=== PATIENT | female | born 1950 | race Caucasian/White ===

== ENCOUNTER → 2019-05-14 14:47 | Outpatient (BNVA) | payer MEDICARE, SELFPAY | PROVIDERS: Family Provider Registered Nurse; PCP Family Medicine; Visit Provider Urology | DX: N39.46 Mixed incontinence (principal) | CPT/HCPCS: 81001 ==

== ENCOUNTER 2020-05-27 15:43 | Inpatient (IN) | payer MEDICARE, SELFPAY ==
[2020-05-27] VITALS (12 sets, daily range): BP systolic 103–150; BP diastolic 45–88; PULSE 75–93; RESP 18–26; TEMP 36.2; O2SAT 87–97; BMI 45.3
--- NOTE | 2020-05-27 16:09 | ED_ITS ---
Documented by User: GENEVIEVE Gregg 05/27/20 16:27 HPI - Altered Mental Status General: Chief Complaint: Shortness of Breath/Dyspnea Stated Complaint: had covid like symptoms for 2 weeks Time Seen by Provider: 05/27/20 15:47 Source: patient and family (son) Mode of arrival: wheelchair Limitations: altered mental status History of Present Illness: HPI narrative: Patient is a 70-year-old female with a history of HTN, DM, HLD, and morbid obesity here along with her son for complaints of altered mental status. Son states he recently calls and checks on his mother and states over the past few weeks she has progressively sounded more and more incoherent . He states when he checked on her today she seemed even more so confused so decided to get her medical evaluation. Patient during my assessment seems alert and oriented. She can tell me her name, , date, and president although some of these answers take more time than expected. When asked if she has any physical complaints currently she tells me she has some neck pain although states this is chronic and not any worse than her baseline. She tells me she has had a cough and shortness of breath ever only admits to these with prompting. She is not having chest pain. She denies abdominal pain, vomiting, diarrhea. Denies urinary symptoms. Denies headache, lightheadedness, dizziness, visual changes. She has not noticed any numbness, tingling, loss of sensation to her extremities. Son has not noticed any facial drooping or slurred speech. MD complaint: altered mental status, confusion and decreased responsiveness Onset (ago): week(s) Consistency of symptoms: Getting Worse Associated symptoms: Reports no associated symptoms Review of Systems Const: Reports: fatigue; Denies: fever(s), chills, body aches or night sweats Eyes: Denies: change in vision ENMT: Denies: odynophagia, nasal discharge or nasal congestion Card: Denies: chest pain, palpitations, irregular heart rhythm, edema, lightheadedness, syncope or pre-syncope Resp: Reports: dyspnea and non-productive cough; Denies: wheezing or hemoptysis GI: Denies: abdominal pain, nausea, vomiting or diarrhea : Denies: flank pain or dysuria Musc: Reports: neck pain (chronic); Denies: back pain or joint pain Skin/Breast: Denies: rash Neuro: Reports: confusion and difficulty communicating thoughts; Denies: headache(s), numbness in extremities, weakness in extremities, sensory changes, dizziness or Slurred speech present [facility] ED PFSH: Medical History (Updated 05/27/20 @ 22:20 by BRITTNEY Noriega) Diabetes HTN (hypertension) Hyperlipidemia Mixed stress and urge urinary incontinence Obesity JIMBO (obstructive sleep apnea) Surgical History H/O section H/O knee surgery S/P adenoidectomy S/P appendectomy S/P cholecystectomy S/P hysterectomy S/P tonsillectomy Status post tubal ligation Family History Father CAD (coronary artery disease) Hypertension Myocardial infarction Mother CAD (coronary artery disease) Hypertension Myocardial infarction Social History Smoking and tobacco status: never smoked Alcohol intake: never Marital status: Current occupational status: retired History of recent travel: No Physical Exam Const: COMMON NORMALS: no acute distress, patient oriented x3, no limitations and alert ORIENTATION/CONSCIOUSNESS: Yes awake, Yes oriented to person, Yes oriented to place and Yes oriented to time OTHER: pt answers all questions appropriately but often pauses and answers take longer than expected to answer HENMT: COMMON NORMALS: normocephalic and atraumatic HEAD & SCALP: normocephalic and atraumatic Resp: COMMON NORMALS: normal respiratory effort and clear to auscultation bilaterally AUSCULTATION: clear to auscultation bilaterally Cardio: COMMON NORMALS: regular rate and regular rhythm RATE: regular rate RHYTHM: regular rhythm GI: COMMON NORMALS: Soft to palpation and non-tender PALPATION: Yes Soft to palpation OTHER: morbid obesity; exam limited due to severe body habitus/extremely large pannus : COMMON NORMALS: Yes no CVA tenderness BLADDER/KIDNEY EXAM: Yes no CVA tenderness Back/Pelvis: COMMON NORMALS: no CVA tenderness Extremity: COMMON NORMALS: capillary refill normal, no joint enlargement, no calf tenderness and no pedal edema Neuro: NAMITA COMA SCALE: document GCS findings [place] coma scale eye opening: Spontaneous Namita coma scale verbal response: Orientated [place] coma scale motor response: Obey commands [place] coma scale total score: 15 COMMON NORMALS: patient oriented x3, moves all extremities, no focal motor deficits and no sensory deficits noted SENSORIUM/ORIENTATION: Yes alert, Yes oriented to person, Yes oriented to place and Yes oriented to time SPEECH: speech normal GAIT: Yes Unable to assess gait Course Vital Signs: Vital signs: Vital Signs Temperature 97.2 F L 05/27/20 15:46 Pulse Rate 90 05/27/20 22:00 Respiratory Rate 19 H 05/27/20 22:00 Blood Pressure 105/84 05/27/20 22:00 Pulse Oximetry 93 05/27/20 22:00 MDM - Altered Mental Status Lab Data: Labs: Lab Results 05/27/20 05/27/20 05/27/20 Range/Units 16:29 16:29 16:29 WBC (4.0-10.0) 10^3/ uL RBC (4.1-5.3) 10^6/u L Hgb (11.5-15.3) g/dL Hct (37.0-47.0) % MCV (81-99) fL MCH (28.0-34.0) pg MCHC (30.0-36.0) g/dL RDW (12.1-15.1) % Plt Count (130-400) 10^3/c mm MPV (7.4-10.4) fL Neut % (Auto) % Lymph % (Auto) % Bulloch % (Auto) % Eos % (Auto) % Baso % (Auto) % Neut # (Auto) (1.8-7.7) 10^3/u L Lymph # (Auto) (0.8-4.8) 10^3/u L Bulloch # (Auto) (0.2-0.9) 10^3/u L Eos # (Auto) (0.0-0.8) 10^3/u L Baso # (Auto) (0.0-0.1) 10^3/u L Nucleated RBC % (a uto) % Nucleated RBCs # /100WBC Specimen Type Sample Site ABG pH (7.35-7.45) ABG pCO2 (35-45) mmHg ABG pO2 (80.0-100.0) mmH g ABG HCO3 (22-26) mmol/L ABG O2 Saturation ABG Base Excess (-2.0-2.0) mmol/ L Salomon Test A-a O2 Gradient (5-10) mmHg Hematocrit (37-47) % Hgb O2 Saturation (95-100) % Carboxyhemoglobin (0.4-20.1) %THgb Methemoglobin (0.4-1.5) % Total Hemoglobin (12-16) g/dL Ionized Calcium (1.1-1.4) mmol/L O2 Delivery Device FiO2 % Director Learning ID Sodium (136-145) mmol/L Potassium (3.5-5.1) mmol/L Chloride (98-107) mmol/L Carbon Dioxide (22-29) mmol/L Anion Gap (5-19) BUN (8-23) mg/dL Creatinine (0.5-0.9) mg/dL GFR Calculation (90-130) mL/min Glucose (65-115) mg/dL Calculated Osmolal ity (285-295) mOsm/k g Lactic Acid (0.5-2.2) mmol/L Calcium (8.5-10.5) mg/dL Total Bilirubin (0.15-1.2) mg/dL AST (0-32) U/L ALT (0-33) U/L Alkaline Phosphata se (35-105) IU/L Troponin T Baselin e (0-10) ng/L Troponin T 120 Min rosebud (0-10) ng/L Delta Troponin T (0-10) ABS# NT-Pro-B Natriuret Pep (0-125) pg/mL Total Protein (6.6-8.7) g/dL Albumin (3.5-5.2) g/dL Globulin (1.3-4.6) g/dL Lipase (13-60) U/L Urine Color Dark yellow (Yellow) Urine Appearance Sl hazy (CLEAR) Urine pH 5 (5-7) Ur Specific Gravit y 1.020 (1.005-1.030) Urine Protein 1+ H (Negative) Urine Glucose (UA) Norm (Normal) Urine Ketones 1+ H (Negative) Urine Blood Neg (Negative) Urine Nitrate Negative (Negative) Urine Bilirubin 1+ H (Negative) Urine Urobilinogen 1 H (Negative) mg/dL Ur Leukocyte Catrina ase Negative (Negative) Urine RBC None (0-2) /hpf Urine WBC 5-10 H (0-5) /hpf Ur Squamous Epith Cells 10-15 H (0-5) /hpf Amorphous Sediment Not Reportable Urine Bacteria 4+ H (NONE) /hpf Urine Opiates Scre en Negative (Negative) ng/mL Ur Barbiturates Sc reen Negative (Negative) ng/mL Ur Phencyclidine S crn Negative (Negative) ng/mL Ur Amphetamines Sc reen Negative (Negative) ng/mL U Benzodiazepines Scrn Negative (Negative) ng/mL Urine Cocaine Scre en Negative (Negative) ng/mL U Marijuana (THC) Screen Negative (Negative) ng/mL Serum Ketones (Negative) SARS-CoV-2 Ag (Rap id) Negative (Negative) 05/27/20 05/27/20 05/27/20 Range/Units 19:15 19:15 19:15 WBC 4.5 (4.0-10.0) 10^3/ uL RBC 4.25 (4.1-5.3) 10^6/u L Hgb 12.1 (11.5-15.3) g/dL Hct 36.9 L (37.0-47.0) % MCV 86.8 (81-99) fL MCH 28.5 (28.0-34.0) pg MCHC 32.8 (30.0-36.0) g/dL RDW 13.3 (12.1-15.1) % Plt Count 204 (130-400) 10^3/c mm MPV 9.4 (7.4-10.4) fL Neut % (Auto) 72.2 % Lymph % (Auto) 18.6 % Bulloch % (Auto) 8.6 % Eos % (Auto) 0.0 % Baso % (Auto) 0.2 % Neut # (Auto) 3.26 (1.8-7.7) 10^3/u L Lymph # (Auto) 0.8 (0.8-4.8) 10^3/u L Bulloch # (Auto) 0.4 (0.2-0.9) 10^3/u L Eos # (Auto) 0.0 (0.0-0.8) 10^3/u L Baso # (Auto) 0.0 (0.0-0.1) 10^3/u L Nucleated RBC % (a uto) 0 % Nucleated RBCs # 0.0 /100WBC Specimen Type Sample Site ABG pH (7.35-7.45) ABG pCO2 (35-45) mmHg ABG pO2 (80.0-100.0) mmH g ABG HCO3 (22-26) mmol/L ABG O2 Saturation ABG Base Excess (-2.0-2.0) mmol/ L Salomon Test A-a O2 Gradient (5-10) mmHg Hematocrit (37-47) % Hgb O2 Saturation (95-100) % Carboxyhemoglobin (0.4-20.1) %THgb Methemoglobin (0.4-1.5) % Total Hemoglobin (12-16) g/dL Ionized Calcium (1.1-1.4) mmol/L O2 Delivery Device FiO2 % Director Learning ID Sodium 136 (136-145) mmol/L Potassium 3.3 L (3.5-5.1) mmol/L Chloride 105 (98-107) mmol/L Carbon Dioxide 19 L (22-29) mmol/L Anion Gap 15.3 (5-19) BUN 15 (8-23) mg/dL Creatinine 0.6 (0.5-0.9) mg/dL GFR Calculation 98.8 (90-130) mL/min Glucose 102 (65-115) mg/dL Calculated Osmolal ity 283 L (285-295) mOsm/k g Lactic Acid 0.6 (0.5-2.2) mmol/L Calcium 8.0 L (8.5-10.5) mg/dL Total Bilirubin 0.3 (0.15-1.2) mg/dL AST 20 (0-32) U/L ALT 17 (0-33) U/L Alkaline Phosphata se 62 (35-105) IU/L Troponin T Baselin e (0-10) ng/L Troponin T 120 Min rosebud (0-10) ng/L Delta Troponin T (0-10) ABS# NT-Pro-B Natriuret Pep 96 (0-125) pg/mL Total Protein 6.0 L (6.6-8.7) g/dL Albumin 3.1 L (3.5-5.2) g/dL Globulin 2.9 (1.3-4.6) g/dL Lipase (13-60) U/L Urine Color (Yellow) Urine Appearance (CLEAR) Urine pH (5-7) Ur Specific Gravit y (1.005-1.030) Urine Protein (Negative) Urine Glucose (UA) (Normal) Urine Ketones (Negative) Urine Blood (Negative) Urine Nitrate (Negative) Urine Bilirubin (Negative) Urine Urobilinogen (Negative) mg/dL Ur Leukocyte Catrina ase (Negative) Urine RBC (0-2) /hpf Urine WBC (0-5) /hpf Ur Squamous Epith Cells (0-5) /hpf Amorphous Sediment Urine Bacteria (NONE) /hpf Urine Opiates Scre en (Negative) ng/mL Ur Barbiturates Sc reen (Negative) ng/mL Ur Phencyclidine S crn (Negative) ng/mL Ur Amphetamines Sc reen (Negative) ng/mL U Benzodiazepines Scrn (Negative) ng/mL Urine Cocaine Scre en (Negative) ng/mL U Marijuana (THC) Screen (Negative) ng/mL Serum Ketones (Negative) SARS-CoV-2 Ag (Rap id) (Negative) 05/27/20 05/27/20 05/27/20 Range/Units 19:15 19:15 19:15 WBC (4.0-10.0) 10^3/ uL RBC (4.1-5.3) 10^6/u L Hgb (11.5-15.3) g/dL Hct (37.0-47.0) % MCV (81-99) fL MCH (28.0-34.0) pg MCHC (30.0-36.0) g/dL RDW (12.1-15.1) % Plt Count (130-400) 10^3/c mm MPV (7.4-10.4) fL Neut % (Auto) % Lymph % (Auto) % Bulloch % (Auto) % Eos % (Auto) % Baso % (Auto) % Neut # (Auto) (1.8-7.7) 10^3/u L Lymph # (Auto) (0.8-4.8) 10^3/u L Bulloch # (Auto) (0.2-0.9) 10^3/u L Eos # (Auto) (0.0-0.8) 10^3/u L Baso # (Auto) (0.0-0.1) 10^3/u L Nucleated RBC % (a uto) % Nucleated RBCs # /100WBC Specimen Type Sample Site ABG pH (7.35-7.45) ABG pCO2 (35-45) mmHg ABG pO2 (80.0-100.0) mmH g ABG HCO3 (22-26) mmol/L ABG O2 Saturation ABG Base Excess (-2.0-2.0) mmol/ L Salomon Test A-a O2 Gradient (5-10) mmHg Hematocrit (37-47) % Hgb O2 Saturation (95-100) % Carboxyhemoglobin (0.4-20.1) %THgb Methemoglobin (0.4-1.5) % Total Hemoglobin (12-16) g/dL Ionized Calcium (1.1-1.4) mmol/L O2 Delivery Device FiO2 % Director Learning ID Sodium (136-145) mmol/L Potassium (3.5-5.1) mmol/L Chloride (98-107) mmol/L Carbon Dioxide (22-29) mmol/L Anion Gap (5-19) BUN (8-23) mg/dL Creatinine (0.5-0.9) mg/dL GFR Calculation (90-130) mL/min Glucose (65-115) mg/dL Calculated Osmolal ity (285-295) mOsm/k g Lactic Acid (0.5-2.2) mmol/L Calcium (8.5-10.5) mg/dL Total Bilirubin (0.15-1.2) mg/dL AST (0-32) U/L ALT (0-33) U/L Alkaline Phosphata se (35-105) IU/L Troponin T Baselin e 21 H (0-10) ng/L Troponin T 120 Min rosebud (0-10) ng/L Delta Troponin T (0-10) ABS# NT-Pro-B Natriuret Pep (0-125) pg/mL Total Protein (6.6-8.7) g/dL Albumin (3.5-5.2) g/dL Globulin (1.3-4.6) g/dL Lipase 19 (13-60) U/L Urine Color (Yellow) Urine Appearance (CLEAR) Urine pH (5-7) Ur Specific Gravit y (1.005-1.030) Urine Protein (Negative) Urine Glucose (UA) (Normal) Urine Ketones (Negative) Urine Blood (Negative) Urine Nitrate (Negative) Urine Bilirubin (Negative) Urine Urobilinogen (Negative) mg/dL Ur Leukocyte Catrina ase (Negative) Urine RBC (0-2) /hpf Urine WBC (0-5) /hpf Ur Squamous Epith Cells (0-5) /hpf Amorphous Sediment Urine Bacteria (NONE) /hpf Urine Opiates Scre en (Negative) ng/mL Ur Barbiturates Sc reen (Negative) ng/mL Ur Phencyclidine S crn (Negative) ng/mL Ur Amphetamines Sc reen (Negative) ng/mL U Benzodiazepines Scrn (Negative) ng/mL Urine Cocaine Scre en (Negative) ng/mL U Marijuana (THC) Screen (Negative) ng/mL Serum Ketones Positive H (Negative) SARS-CoV-2 Ag (Rap id) (Negative) 05/27/20 05/27/20 Range/Units 20:29 21:14 WBC (4.0-10.0) 10^3/ uL RBC (4.1-5.3) 10^6/u L Hgb (11.5-15.3) g/dL Hct (37.0-47.0) % MCV (81-99) fL MCH (28.0-34.0) pg MCHC (30.0-36.0) g/dL RDW (12.1-15.1) % Plt Count (130-400) 10^3/c mm MPV (7.4-10.4) fL Neut % (Auto) % Lymph % (Auto) % Bulloch % (Auto) % Eos % (Auto) % Baso % (Auto) % Neut # (Auto) (1.8-7.7) 10^3/u L Lymph # (Auto) (0.8-4.8) 10^3/u L Bulloch # (Auto) (0.2-0.9) 10^3/u L Eos # (Auto) (0.0-0.8) 10^3/u L Baso # (Auto) (0.0-0.1) 10^3/u L Nucleated RBC % (a uto) % Nucleated RBCs # /100WBC Specimen Type Arterial Sample Site Radial, left ABG pH 7.41 (7.35-7.45) ABG pCO2 33.9 L (35-45) mmHg ABG pO2 56.2 L (80.0-100.0) mmH g ABG HCO3 21.6 L (22-26) mmol/L ABG O2 Saturation 90.6 ABG Base Excess -2.4 L (-2.0-2.0) mmol/ L Salomon Test Pos A-a O2 Gradient 6.4 (5-10) mmHg Hematocrit 38.7 (37-47) % Hgb O2 Saturation 89.1 L (95-100) % Carboxyhemoglobin 0.8 (0.4-20.1) %THgb Methemoglobin 0.9 (0.4-1.5) % Total Hemoglobin 12.6 (12-16) g/dL Ionized Calcium 1.1 (1.1-1.4) mmol/L O2 Delivery Device Room air FiO2 21.0 % Director Learning ID Harkr Sodium 137.0 (136-145) mmol/L Potassium 3.1 L (3.5-5.1) mmol/L Chloride (98-107) mmol/L Carbon Dioxide (22-29) mmol/L Anion Gap (5-19) BUN (8-23) mg/dL Creatinine (0.5-0.9) mg/dL GFR Calculation (90-130) mL/min Glucose 94.0 (65-115) mg/dL Calculated Osmolal ity (285-295) mOsm/k g Lactic Acid (0.5-2.2) mmol/L Calcium (8.5-10.5) mg/dL Total Bilirubin (0.15-1.2) mg/dL AST (0-32) U/L ALT (0-33) U/L Alkaline Phosphata se (35-105) IU/L Troponin T Baselin e (0-10) ng/L Troponin T 120 Min rosebud 18.91 H (0-10) ng/L Delta Troponin T -2.09 L (0-10) ABS# NT-Pro-B Natriuret Pep (0-125) pg/mL Total Protein (6.6-8.7) g/dL Albumin (3.5-5.2) g/dL Globulin (1.3-4.6) g/dL Lipase (13-60) U/L Urine Color (Yellow) Urine Appearance (CLEAR) Urine pH (5-7) Ur Specific Gravit y (1.005-1.030) Urine Protein (Negative) Urine Glucose (UA) (Normal) Urine Ketones (Negative) Urine Blood (Negative) Urine Nitrate (Negative) Urine Bilirubin (Negative) Urine Urobilinogen (Negative) mg/dL Ur Leukocyte Catrina ase (Negative) Urine RBC (0-2) /hpf Urine WBC (0-5) /hpf Ur Squamous Epith Cells (0-5) /hpf Amorphous Sediment Urine Bacteria (NONE) /hpf Urine Opiates Scre en (Negative) ng/mL Ur Barbiturates Sc reen (Negative) ng/mL Ur Phencyclidine S crn (Negative) ng/mL Ur Amphetamines Sc reen (Negative) ng/mL U Benzodiazepines Scrn (Negative) ng/mL Urine Cocaine Scre en (Negative) ng/mL U Marijuana (THC) Screen (Negative) ng/mL Serum Ketones (Negative) SARS-CoV-2 Ag (Rap id) (Negative) Discharge Plan Discharge Patient Disposition: Admitted As Inpatient Clinical Impression: Weakness, Suspected 2019 novel coronavirus infection Acute exacerbation of CHF (congestive heart failure) Qualifiers: Heart failure type: unspecified Qualified Code(s): I50.9 - Heart failure, unsp ecified Condition: Stable Sign Out Sign Out Data: Patient Sign Out occurred on 05/27/20 at 17:14. Patient's care was discussed, and care was transferred from to BRITTNEY Noriega. Coding Level of Care Code ED Mine Promotor for Chg Fwd Exam Comprehensive Documented by User: BRITTNEY Noriega 05/27/20 22:25 HPI - Altered Mental Status General: Chief Complaint: Shortness of Breath/Dyspnea Stated Complaint: had covid like symptoms for 2 weeks Time Seen by Provider: 05/27/20 15:47 PFSH ED PFSH: Medical History (Updated 05/27/20 @ 22:20 by BRITTNEY Noriega) Diabetes HTN (hypertension) Hyperlipidemia Mixed stress and urge urinary incontinence Obesity JIMBO (obstructive sleep apnea) Surgical History H/O section H/O knee surgery S/P adenoidectomy S/P appendectomy S/P cholecystectomy S/P hysterectomy S/P tonsillectomy Status post tubal ligation Family History Father CAD (coronary artery disease) Hypertension Myocardial infarction Mother CAD (coronary artery disease) Hypertension Myocardial infarction Social History Smoking and tobacco status: never smoked Alcohol intake: never Marital status: Current occupational status: retired History of recent travel: No Course Consultations: Consultation #1: Dr Zaldivar, hospitalist, discussed history of present illness, clinical findings and serology/radiology findings. Agrees to admit to inpatient services, acute exacerbation of CHF, weakness and suspected COVID-19 infection. Advised to administer 20 mg of Lasix. Time: 22:15 Vital Signs: Vital signs: Vital Signs Temperature 97.2 F L 05/27/20 15:46 Pulse Rate 90 05/27/20 22:00 Respiratory Rate 19 H 05/27/20 22:00 Blood Pressure 105/84 05/27/20 22:00 Pulse Oximetry 93 05/27/20 22:00 MDM - Altered Mental Status MDM Narrative: Medical decision making narrative: 70-year-old female patient presents to the emergency department at the request of her primary care physician, 6-week onset of shortness of breath, increased weakness and altered mental status according to family; she reports increased shortness of breath x2 weeks with cough, she reports 2-day onset of chest pain that is located in the center of her chest with nausea. She reports shortness of breath is worse with activity/movement, states has not completed ADLs in her home as she has been too weak, she reports family has brought her food as she is too weak to cook. She does not have cardiac history, she is diabetic with hypertension, hyperlipidemia, diabetes morbid obesity and JIMBO. She does have family history, her father of inferior wall [place]. Cardiac stress test 2018, previously evaluated by cardiology November 2019. Weight loss encouraged along with lifestyle changes. Initiation of Trulicity approximately 5 weeks ago, serum ketones found to be positive, PaO2 on her ABG was 56.2, bicarb 21.6, CO2 33.9; chest x-ray revealed prominent interstitial markings questioning volume overload versus viral etiology. White blood count normal, initial Covid screen, rapid negative, lipase 19, BNP 96 which was not elevated. EKGs without ST elevation lactic acid 0.6, urinalysis did show 4+ bacteria with 5-10 white blood cells, leukoesterase and nitrates were negative. Troponin with negative delta at the 2-hour brian. Spoke with hospitalist, Dr. Zaldivar, who accepted for hospital admission. 20 mg of Lasix initiated here in the ED due to possibility of fluid overload. Potassium was replaced. PCR COVID-19 testing pending. She was placed on supplemental O2 secondary to hypoxia, normally on CPAP at home at bedtime. Initial dose of Levaquin provided here in the ED due to possibility of pneumonia. Patient was a difficult stick for both serology and IV, CTA of the chest not completed due to poor IV placement. She is remained afebrile, vital signs with blood pressure 105/84, she is not tachycardic. Lab Data: Labs: Lab Results 05/27/20 05/27/20 05/27/20 Range/Units 16:29 16:29 16:29 WBC (4.0-10.0) 10^3/ uL RBC (4.1-5.3) 10^6/u L Hgb (11.5-15.3) g/dL Hct (37.0-47.0) % MCV (81-99) fL MCH (28.0-34.0) pg MCHC (30.0-36.0) g/dL RDW (12.1-15.1) % Plt Count (130-400) 10^3/c mm MPV (7.4-10.4) fL Neut % (Auto) % Lymph % (Auto) % Bulloch % (Auto) % Eos % (Auto) % Baso % (Auto) % Neut # (Auto) (1.8-7.7) 10^3/u L Lymph # (Auto) (0.8-4.8) 10^3/u L Bulloch # (Auto) (0.2-0.9) 10^3/u L Eos # (Auto) (0.0-0.8) 10^3/u L Baso # (Auto) (0.0-0.1) 10^3/u L Nucleated RBC % (a uto) % Nucleated RBCs # /100WBC Specimen Type Sample Site ABG pH (7.35-7.45) ABG pCO2 (35-45) mmHg ABG pO2 (80.0-100.0) mmH g ABG HCO3 (22-26) mmol/L ABG O2 Saturation ABG Base Excess (-2.0-2.0) mmol/ L Salomon Test A-a O2 Gradient (5-10) mmHg Hematocrit (37-47) % Hgb O2 Saturation (95-100) % Carboxyhemoglobin (0.4-20.1) %THgb Methemoglobin (0.4-1.5) % Total Hemoglobin (12-16) g/dL Ionized Calcium (1.1-1.4) mmol/L O2 Delivery Device FiO2 % Director Learning ID Sodium (136-145) mmol/L Potassium (3.5-5.1) mmol/L Chloride (98-107) mmol/L Carbon Dioxide (22-29) mmol/L Anion Gap (5-19) BUN (8-23) mg/dL Creatinine (0.5-0.9) mg/dL GFR Calculation (90-130) mL/min Glucose (65-115) mg/dL Calculated Osmolal ity (285-295) mOsm/k g Lactic Acid (0.5-2.2) mmol/L Calcium (8.5-10.5) mg/dL Total Bilirubin (0.15-1.2) mg/dL AST (0-32) U/L ALT (0-33) U/L Alkaline Phosphata se (35-105) IU/L Troponin T Baselin e (0-10) ng/L Troponin T 120 Min rosebud (0-10) ng/L Delta Troponin T (0-10) ABS# NT-Pro-B Natriuret Pep (0-125) pg/mL Total Protein (6.6-8.7) g/dL Albumin (3.5-5.2) g/dL Globulin (1.3-4.6) g/dL Lipase (13-60) U/L Urine Color Dark yellow (Yellow) Urine Appearance Sl hazy (CLEAR) Urine pH 5 (5-7) Ur Specific Gravit y 1.020 (1.005-1.030) Urine Protein 1+ H (Negative) Urine Glucose (UA) Norm (Normal) Urine Ketones 1+ H (Negative) Urine Blood Neg (Negative) Urine Nitrate Negative (Negative) Urine Bilirubin 1+ H (Negative) Urine Urobilinogen 1 H (Negative) mg/dL Ur Leukocyte Catrina ase Negative (Negative) Urine RBC None (0-2) /hpf Urine WBC 5-10 H (0-5) /hpf Ur Squamous Epith Cells 10-15 H (0-5) /hpf Amorphous Sediment Not Reportable Urine Bacteria 4+ H (NONE) /hpf Urine Opiates Scre en Negative (Negative) ng/mL Ur Barbiturates Sc reen Negative (Negative) ng/mL Ur Phencyclidine S crn Negative (Negative) ng/mL Ur Amphetamines Sc reen Negative (Negative) ng/mL U Benzodiazepines Scrn Negative (Negative) ng/mL Urine Cocaine Scre en Negative (Negative) ng/mL U Marijuana (THC) Screen Negative (Negative) ng/mL Serum Ketones (Negative) SARS-CoV-2 Ag (Rap id) Negative (Negative) 05/27/20 05/27/20 05/27/20 Range/Units 19:15 19:15 19:15 WBC 4.5 (4.0-10.0) 10^3/ uL RBC 4.25 (4.1-5.3) 10^6/u L Hgb 12.1 (11.5-15.3) g/dL Hct 36.9 L (37.0-47.0) % MCV 86.8 (81-99) fL MCH 28.5 (28.0-34.0) pg MCHC 32.8 (30.0-36.0) g/dL RDW 13.3 (12.1-15.1) % Plt Count 204 (130-400) 10^3/c mm MPV 9.4 (7.4-10.4) fL Neut % (Auto) 72.2 % Lymph % (Auto) 18.6 % Bulloch % (Auto) 8.6 % Eos % (Auto) 0.0 % Baso % (Auto) 0.2 % Neut # (Auto) 3.26 (1.8-7.7) 10^3/u L Lymph # (Auto) 0.8 (0.8-4.8) 10^3/u L Bulloch # (Auto) 0.4 (0.2-0.9) 10^3/u L Eos # (Auto) 0.0 (0.0-0.8) 10^3/u L Baso # (Auto) 0.0 (0.0-0.1) 10^3/u L Nucleated RBC % (a uto) 0 % Nucleated RBCs # 0.0 /100WBC Specimen Type Sample Site ABG pH (7.35-7.45) ABG pCO2 (35-45) mmHg ABG pO2 (80.0-100.0) mmH g ABG HCO3 (22-26) mmol/L ABG O2 Saturation ABG Base Excess (-2.0-2.0) mmol/ L Salomon Test A-a O2 Gradient (5-10) mmHg Hematocrit (37-47) % Hgb O2 Saturation (95-100) % Carboxyhemoglobin (0.4-20.1) %THgb Methemoglobin (0.4-1.5) % Total Hemoglobin (12-16) g/dL Ionized Calcium (1.1-1.4) mmol/L O2 Delivery Device FiO2 % Director Learning ID Sodium 136 (136-145) mmol/L Potassium 3.3 L (3.5-5.1) mmol/L Chloride 105 (98-107) mmol/L Carbon Dioxide 19 L (22-29) mmol/L Anion Gap 15.3 (5-19) BUN 15 (8-23) mg/dL Creatinine 0.6 (0.5-0.9) mg/dL GFR Calculation 98.8 (90-130) mL/min Glucose 102 (65-115) mg/dL Calculated Osmolal ity 283 L (285-295) mOsm/k g Lactic Acid 0.6 (0.5-2.2) mmol/L Calcium 8.0 L (8.5-10.5) mg/dL Total Bilirubin 0.3 (0.15-1.2) mg/dL AST 20 (0-32) U/L ALT 17 (0-33) U/L Alkaline Phosphata se 62 (35-105) IU/L Troponin T Baselin e (0-10) ng/L Troponin T 120 Min rosebud (0-10) ng/L Delta Troponin T (0-10) ABS# NT-Pro-B Natriuret Pep 96 (0-125) pg/mL Total Protein 6.0 L (6.6-8.7) g/dL Albumin 3.1 L (3.5-5.2) g/dL Globulin 2.9 (1.3-4.6) g/dL Lipase (13-60) U/L Urine Color (Yellow) Urine Appearance (CLEAR) Urine pH (5-7) Ur Specific Gravit y (1.005-1.030) Urine Protein (Negative) Urine Glucose (UA) (Normal) Urine Ketones (Negative) Urine Blood (Negative) Urine Nitrate (Negative) Urine Bilirubin (Negative) Urine Urobilinogen (Negative) mg/dL Ur Leukocyte Catrina ase (Negative) Urine RBC (0-2) /hpf Urine WBC (0-5) /hpf Ur Squamous Epith Cells (0-5) /hpf Amorphous Sediment Urine Bacteria (NONE) /hpf Urine Opiates Scre en (Negative) ng/mL Ur Barbiturates Sc reen (Negative) ng/mL Ur Phencyclidine S crn (Negative) ng/mL Ur Amphetamines Sc reen (Negative) ng/mL U Benzodiazepines Scrn (Negative) ng/mL Urine Cocaine Scre en (Negative) ng/mL U Marijuana (THC) Screen (Negative) ng/mL Serum Ketones (Negative) SARS-CoV-2 Ag (Rap id) (Negative) 05/27/20 05/27/20 05/27/20 Range/Units 19:15 19:15 19:15 WBC (4.0-10.0) 10^3/ uL RBC (4.1-5.3) 10^6/u L Hgb (11.5-15.3) g/dL Hct (37.0-47.0) % MCV (81-99) fL MCH (28.0-34.0) pg MCHC (30.0-36.0) g/dL RDW (12.1-15.1) % Plt Count (130-400) 10^3/c mm MPV (7.4-10.4) fL Neut % (Auto) % Lymph % (Auto) % Bulloch % (Auto) % Eos % (Auto) % Baso % (Auto) % Neut # (Auto) (1.8-7.7) 10^3/u L Lymph # (Auto) (0.8-4.8) 10^3/u L Bulloch # (Auto) (0.2-0.9) 10^3/u L Eos # (Auto) (0.0-0.8) 10^3/u L Baso # (Auto) (0.0-0.1) 10^3/u L Nucleated RBC % (a uto) % Nucleated RBCs # /100WBC Specimen Type Sample Site ABG pH (7.35-7.45) ABG pCO2 (35-45) mmHg ABG pO2 (80.0-100.0) mmH g ABG HCO3 (22-26) mmol/L ABG O2 Saturation ABG Base Excess (-2.0-2.0) mmol/ L Salomon Test A-a O2 Gradient (5-10) mmHg Hematocrit (37-47) % Hgb O2 Saturation (95-100) % Carboxyhemoglobin (0.4-20.1) %THgb Methemoglobin (0.4-1.5) % Total Hemoglobin (12-16) g/dL Ionized Calcium (1.1-1.4) mmol/L O2 Delivery Device FiO2 % Director Learning ID Sodium (136-145) mmol/L Potassium (3.5-5.1) mmol/L Chloride (98-107) mmol/L Carbon Dioxide (22-29) mmol/L Anion Gap (5-19) BUN (8-23) mg/dL Creatinine (0.5-0.9) mg/dL GFR Calculation (90-130) mL/min Glucose (65-115) mg/dL Calculated Osmolal ity (285-295) mOsm/k g Lactic Acid (0.5-2.2) mmol/L Calcium (8.5-10.5) mg/dL Total Bilirubin (0.15-1.2) mg/dL AST (0-32) U/L ALT (0-33) U/L Alkaline Phosphata se (35-105) IU/L Troponin T Baselin e 21 H (0-10) ng/L Troponin T 120 Min rosebud (0-10) ng/L Delta Troponin T (0-10) ABS# NT-Pro-B Natriuret Pep (0-125) pg/mL Total Protein (6.6-8.7) g/dL Albumin (3.5-5.2) g/dL Globulin (1.3-4.6) g/dL Lipase 19 (13-60) U/L Urine Color (Yellow) Urine Appearance (CLEAR) Urine pH (5-7) Ur Specific Gravit y (1.005-1.030) Urine Protein (Negative) Urine Glucose (UA) (Normal) Urine Ketones (Negative) Urine Blood (Negative) Urine Nitrate (Negative) Urine Bilirubin (Negative) Urine Urobilinogen (Negative) mg/dL Ur Leukocyte Catrina ase (Negative) Urine RBC (0-2) /hpf Urine WBC (0-5) /hpf Ur Squamous Epith Cells (0-5) /hpf Amorphous Sediment Urine Bacteria (NONE) /hpf Urine Opiates Scre en (Negative) ng/mL Ur Barbiturates Sc reen (Negative) ng/mL Ur Phencyclidine S crn (Negative) ng/mL Ur Amphetamines Sc reen (Negative) ng/mL U Benzodiazepines Scrn (Negative) ng/mL Urine Cocaine Scre en (Negative) ng/mL U Marijuana (THC) Screen (Negative) ng/mL Serum Ketones Positive H (Negative) SARS-CoV-2 Ag (Rap id) (Negative) 05/27/20 05/27/20 Range/Units 20:29 21:14 WBC (4.0-10.0) 10^3/ uL RBC (4.1-5.3) 10^6/u L Hgb (11.5-15.3) g/dL Hct (37.0-47.0) % MCV (81-99) fL MCH (28.0-34.0) pg MCHC (30.0-36.0) g/dL RDW (12.1-15.1) % Plt Count (130-400) 10^3/c mm MPV (7.4-10.4) fL Neut % (Auto) % Lymph % (Auto) % Bulloch % (Auto) % Eos % (Auto) % Baso % (Auto) % Neut # (Auto) (1.8-7.7) 10^3/u L Lymph # (Auto) (0.8-4.8) 10^3/u L Bulloch # (Auto) (0.2-0.9) 10^3/u L Eos # (Auto) (0.0-0.8) 10^3/u L Baso # (Auto) (0.0-0.1) 10^3/u L Nucleated RBC % (a uto) % Nucleated RBCs # /100WBC Specimen Type Arterial Sample Site Radial, left ABG pH 7.41 (7.35-7.45) ABG pCO2 33.9 L (35-45) mmHg ABG pO2 56.2 L (80.0-100.0) mmH g ABG HCO3 21.6 L (22-26) mmol/L ABG O2 Saturation 90.6 ABG Base Excess -2.4 L (-2.0-2.0) mmol/ L Salomon Test Pos A-a O2 Gradient 6.4 (5-10) mmHg Hematocrit 38.7 (37-47) % Hgb O2 Saturation 89.1 L (95-100) % Carboxyhemoglobin 0.8 (0.4-20.1) %THgb Methemoglobin 0.9 (0.4-1.5) % Total Hemoglobin 12.6 (12-16) g/dL Ionized Calcium 1.1 (1.1-1.4) mmol/L O2 Delivery Device Room air FiO2 21.0 % Director Learning ID [email or web address] Sodium 137.0 (136-145) mmol/L Potassium 3.1 L (3.5-5.1) mmol/L Chloride (98-107) mmol/L Carbon Dioxide (22-29) mmol/L Anion Gap (5-19) BUN (8-23) mg/dL Creatinine (0.5-0.9) mg/dL GFR Calculation (90-130) mL/min Glucose 94.0 (65-115) mg/dL Calculated Osmolal ity (285-295) mOsm/k g Lactic Acid (0.5-2.2) mmol/L Calcium (8.5-10.5) mg/dL Total Bilirubin (0.15-1.2) mg/dL AST (0-32) U/L ALT (0-33) U/L Alkaline Phosphata se (35-105) IU/L Troponin T Baselin e (0-10) ng/L Troponin T 120 Min rosebud 18.91 H (0-10) ng/L Delta Troponin T -2.09 L (0-10) ABS# NT-Pro-B Natriuret Pep (0-125) pg/mL Total Protein (6.6-8.7) g/dL Albumin (3.5-5.2) g/dL Globulin (1.3-4.6) g/dL Lipase (13-60) U/L Urine Color (Yellow) Urine Appearance (CLEAR) Urine pH (5-7) Ur Specific Gravit y (1.005-1.030) Urine Protein (Negative) Urine Glucose (UA) (Normal) Urine Ketones (Negative) Urine Blood (Negative) Urine Nitrate (Negative) Urine Bilirubin (Negative) Urine Urobilinogen (Negative) mg/dL Ur Leukocyte Catrina ase (Negative) Urine RBC (0-2) /hpf Urine WBC (0-5) /hpf Ur Squamous Epith Cells (0-5) /hpf Amorphous Sediment Urine Bacteria (NONE) /hpf Urine Opiates Scre en (Negative) ng/mL Ur Barbiturates Sc reen (Negative) ng/mL Ur Phencyclidine S crn (Negative) ng/mL Ur Amphetamines Sc reen (Negative) ng/mL U Benzodiazepines Scrn (Negative) ng/mL Urine Cocaine Scre en (Negative) ng/mL U Marijuana (THC) Screen (Negative) ng/mL Serum Ketones (Negative) SARS-CoV-2 Ag (Rap id) (Negative) Imaging Data^: CXR: Radiologist's impression: [facility] [address] [place] [address] CT Scan Report Signed Patient: Taina Burdick #: [id number] : 1950Acct#:[id number] Age/Sex: 70 / FADM Date: 05/27/20 Loc: ERRoom/Bed: Attending Dr: Ordering Provider/Ordering MD: Ana Maria Morton Date of Service: 05/27/20 Procedure(s): CT head wo con* 70018 Accession Number(s): [id number] Report Number: [id number] PROCEDURE INFORMATION: Exam: CT Head Without Contrast Exam date and time: 05/27/2020 4:15 PM Age: 70 years old Clinical indication: Altered mental status/memory loss; Additional info: AMS TECHNIQUE: Imaging protocol: Computed tomography of the head without contrast. Radiation optimization: All CT scans at this facility use at least one of these dose optimization techniques: automated exposure control; mA and/or kV adjustment per patient size (includes targeted exams where dose is matched to clinical indication); or iterative reconstruction. COMPARISON: No relevant prior studies available. RADIATION DOSE METRICS: Total DLP (mGy-cm): 966.18 FINDINGS: Brain: No evidence of acute infarct. No mass or mass effect. No intra axial hemorrhage. No extra axial fluid collection or hemorrhage. Global brain volume loss, likely age related. Cerebral ventricles: Symmetric and without enlargement. Bones/joints: No acute fracture. Paranasal sinuses: Visualized sinuses are well aerated. Mastoid air cells: Visualized mastoid air cells are well aerated. Soft tissues: No concerning abnormalities. CT/CT head wo con* [id number] IMPRESSION: No acute intracranial abnormality. Radiation Dose CTDIVOL = (mGy): DLP = 966.18 (mGy-cm) Dictated By:Hussain Granger Signed By:Tiffany Granger Date/Time:05/27/201711 DD/ 11 Other Xray: Radiologist's impression: [address] [address] XRay Report Signed Patient: Taina Burdick #: [id number] : 1950Acct#:[id number] Age/Sex: 70 / FADM Date: 05/27/20 Loc: ERRoom/Bed: Attending Dr: Ordering Provider/Ordering MD: Ana Maria Morton Date of Service: 05/27/20 Procedure(s): XR chest 1V portable 03327 Accession Number(s): [id number] Report Number: [id number] PROCEDURE INFORMATION: Exam: XR Chest Exam date and time: 05/27/2020 4:47 PM Age: 70 years old Clinical indication: Shortness of breath; Additional info: AMS TECHNIQUE: Imaging protocol: XR of the chest. Views: 1 view. COMPARISON: No relevant prior studies available. FINDINGS: Lungs: No focal consolidation. Mildly prominent interstitial markings. Pleural spaces: Unremarkable. No pleural effusion. No pneumothorax. Heart/Mediastinum: Mild enlargement of the cardiac shadow. Bones/joints: No acute abnormality. XR/XR chest 1V portable [id number] IMPRESSION: 1. No focal consolidation. 2. Mildly prominent interstitial markings which may reflect volume overload or viral infection. Dictated By:Hussain Granger Signed By:Hussain GrangerSignalis Date/Time:05/27/201732 DD/ 30 EKG Data^: EKG 1: EKG interpretation date: 05/27/20 EKG interpretation time: 17:47 Other EKG comments: Sinus rhythm with first-degree AV block, moderate intraventricular conduction delay, abnormal ECG ventricular rate 82 EKG 2: EKG interpretation date: 05/27/20 EKG interpretation time: 21:20 Prior EKG tracings: available for review Other EKG comments: Ventricular rate 84, sinus rhythm with first-degree AV block, abnormal EKG, no acute change from previous EKG Discharge Plan Discharge Patient Disposition: Admitted As Inpatient Clinical Impression: Weakness, Suspected 2019 novel coronavirus infection Acute exacerbation of CHF (congestive heart failure) Qualifiers: Heart failure type: unspecified Qualified Code(s): I50.9 - Heart failure, unspecified Condition: Stable Sign Out Sign Out Data: Patient Sign Out occurred on 05/27/20 at 17:14. Patient's care was discussed, and care was transferred from to BRITTNEY Noriega. Coding Level of Care Code ED Mine Promotor for g Fwd Exam Comprehensive
[2020-05-27 17:02] LABS: Add Urine Microscopic? YES; Bilirubin Urine 1+ (Negative); Blood Urine Neg (Negative); Glucose Urine UA Norm (Normal); Ketones Urine 1+ (Negative); Leukocyte Esterase Urine Negative (Negative); Nitrate Urine Negative (Negative); Protein Urine 1+ (Negative); Urine Appearance SL Hazy (CLEAR); Urine Color Dark Yellow (Yellow); Urobilinogen Urine 1 mg/dL (Negative); pH Urine 5 (5-7)
[2020-05-27 17:10] LABS: Amphetamines Screen Urine Negative (Negative); Barbiturates Screen Urine Negative (Negative); Benzodiazepines Screen Urine Negative (Negative); Cocaine Screen Urine Negative (Negative); Opiate Screen Urine Negative (Negative); PCP Screen Urine Negative (Negative); THC Screen Urine Negative (Negative)
[2020-05-27 17:11] LABS: Bacteria Urine 4+ /hpf
[2020-05-27 17:13] LABS: Add Urine Culture? No
[2020-05-27 17:19] LABS: SARS Covid-2 Antigen Negative (Negative)
--- NOTE | 2020-05-27 17:35 | ECG_ITS ---
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
[2020-05-27] MEDS: lidocaine 2% viscous 15 ML, aluminum-mag hydrox-simethicon 30 ML, sucralfate oral liq 1 GM PO (17:58)
[2020-05-27 19:24] LABS: Basophils % 0.2 %; Hematocrit 36.9 % (37.0-47.0); Hemoglobin 12.1 g/dL (11.5-15.3); Lymphocytes # 0.8 10^3/uL (0.8-4.8); Lymphocytes % 18.6 %; Mean Corpuscular HGB Conc 32.8 g/dL (30.0-36.0); Mean Corpuscular Hemoglobin 28.5 pg (28.0-34.0); Mean Corpuscular Volume 86.8 fL (81-99); Mean Platelet Volume 9.4 fL (7.4-10.4); Monocytes # 0.4 10^3/uL (0.2-0.9); Monocytes % 8.6 %; Neutrophils # 3.26 10^3/uL (1.8-7.7); Neutrophils % 72.2 %; Nucleated Red Blood Cells % 0 %; Platelet Count 204 10^3/cmm (130-400); Red Blood Count 4.25 10^6/uL (4.1-5.3); Red Cell Distribution Width 13.3 % (12.1-15.1); White Blood Count 4.5 10^3/uL (4.0-10.0)
[2020-05-27 19:46] LABS: Ketone (Acetest) Serum Positive (Negative)
[2020-05-27 19:53] LABS: Lactic Sepsis W/Reflex 0.6 mmol/L (0.5-2.2)
[2020-05-27 19:56] LABS: Troponin(5th) Baseline 21 ng/L (0-10)
[2020-05-27 20:04] LABS: Alanine Aminotransferase 17 U/L (0-33); Albumin Level 3.1 g/dL (3.5-5.2); Alkaline Phosphatase 62 IU/L (35-105); Anion Gap 15.3 (5-19); Aspartate Amino Transferase 20 U/L (0-32); Blood Urea Nitrogen 15 mg/dL (8-23); Carbon Dioxide 19 mmol/L (22-29); Chloride 105 mmol/L (98-107); Globulin 2.9 g/dL (1.3-4.6); Glomerular Filtration Rate 98.8 mL/min (90-130); Glucose 102 mg/dL (65-115); NT Pro B Type Natriuretic Pept 96 pg/mL (0-125); Osmolality Calculated 283 mOsm/kg (285-295); Potassium 3.3 mmol/L (3.5-5.1); Sodium 136 mmol/L (136-145); Total Bilirubin 0.3 mg/dL (0.15-1.2)
[2020-05-27 20:39] LABS: ABG PCO2 33.9 mmHg (35-45); ABG PH Result 7.41 (7.35-7.45); Alveolar-Arterial Oxygen Gradi 6.4 mmHg (5-10); Arterial Blood Gas Hematocrit 38.7 % (37-47); Base Excess ABG -2.4 mmol/L (-2.0-2.0); Blood Gas Allen Test Pos; Blood Gas Operator Identificat HARKR; Blood Gas Sample Site Radial, left; Blood Gas Sample Type Arterial; Carboxyhemoglobin 0.8 %THgb (0.4-20.1); HCO3 ABG 21.6 mmol/L (22-26); HGB O2 Sat 89.1 % (95-100); Ionized Calcium Level - ABG 1.1 mmol/L (1.1-1.4); Methemoglobin 0.9 % (0.4-1.5); Oxygen Device ROOM AIR; Oxygen Saturation ABG 90.6; PO2 ABG 56.2 mmHg (80.0-100.0); Potassium Level - ABG 3.1 mmol/L (3.5-5.0); Total Hemoglobin 12.6 g/dL (12-16)
[2020-05-27 21:21] LABS: Lipase 19 U/L (13-60)
[2020-05-27 21:45] LABS: Troponin 5 2HR 18.91 ng/L (0-10)
[2020-05-27 21:46] LABS: Troponin 5 2HR Delta -2.09 ABS# (0-10)
[2020-05-27] MEDS: levofloxacin-dextrose 5 % 750 MG/150 ML PREMIX 100 MG IV (22:00)
--- NOTE | 2020-05-27 22:23 | P.HP_ITS ---
Providers/Chief Complaint Primary Care Provider: Emely Clark DO Chief Complaint: had covid like symptoms for 2 weeks History of Present Illness Taina Burdick is a 70 year old female who has history of severe morbid obesity, sleep apnea, diabetes, hypertension, presented today with chief complaint of generalized fatigue, anorexia and shortness of breath. Patient is stating that she attended a scrape book event few days back and was exposed to someone who had COVID-19, she did not experience any fever, she does not use oxy gen at home she does use CPAP at night, does not use any Lasix. Of note, 5 weeks ago she started taking Trulicity as well. She describing her symptoms as fatigue generalized malaise, lethargy anorexia, 4 episodes of loose stool in last 48 hours, shortness of breath on exertion. She is denying worsening of her chronic pain, she has been debilitated to the point she was requesting food in her bed and was not able to get up at all. Family brought her here for further evaluation. Diagnostics in the ER revealed acute hypoxic respiratory failure evident on ABG requiring 3 L nasal cannula at the time of my evaluation no active worsening of chronic chest pain, troponin negative delta EKG without ischemic or infarctive changes, CBC unremarkable BMP shows hypokalemia, BNP unremarkable, chest x-ray shows pulmonary edema without signs of consolidation groundglass opacities Covid antigen negative, PCR has been sent she has been given Levaquin and Lasix in the ER Review of Systems Const: Reports: chills, body aches, change in appetite, change in weight, fatigue, malaise and daytime sleepiness; Denies: fever(s) Eyes: Denies: change in vision ENMT: Denies: throat pain Card: Reports: dyspnea on exertion; Denies: chest pain, syncope or orthopnea Resp: Reports: dyspnea GI: Reports: diarrhea; Denies: abdominal pain : Denies: flank pain Musc: Denies: neck pain, extremity swelling or joint redness Skin/Breast: Denies: rash or lesions Neuro: Denies: headache(s) Psych: Denies: anxiety Endo: Denies: polyuria Trell/Lymph: Denies: easy bruising All/Imm: Denies: urticaria Medications/Allergies Home Medications Medication Instructions Recorded Confirmed Last Taken Type albuterol sulfate 90 mcg/actuation 2 inh INHALATION Q4H PRN 04/29/19 05/27/20 05/27/20 History breath activated powder inhaler atorvastatin 10 mg tablet 10 mg PO DAILY@229904/29/19 05/27/20 05/26/20 History ibuprofen 800 mg tablet 800 mg PO Q8H PRN 04/29/19 05/27/20 05/26/20 History lisinopril 20 mg tablet 20 mg PO DAILY@229904/29/19 05/27/20 05/26/20 History tramadol 50 mg tablet 50 mg PO BID PRN 04/29/19 05/27/20 05/26/20 History aspirin [Aspir-81] 81 mg PO DAILY@229905/27/20 05/27/20 05/26/20 History dulaglutide [Trulicity] 1.5 mg SUBCUT DAILY@229905/27/20 05/27/20 05/26/20 History Allergies Allergy/AdvReac Type Severity Reaction Status Date / Time hydrocodone [From Vicodin] Allergy Unknown Unknown Verified 05/27/20 15:53 PFSH Acute PFSH: Medical History (Updated 05/27/20 @ 23:15 by Valeria Zaldivar MD) Diabetes HTN (hypertension) Hyperlipidemia Mixed stress and urge urinary incontinence Obesity JIMBO (obstructive sleep apnea) Surgical History H/O section H/O knee surgery S/P adenoidectomy S/P appendectomy S/P cholecystectomy S/P hysterectomy S/P tonsillectomy Status post tubal ligation Family History Father CAD (coronary artery disease) Hypertension Myocardial infarction Mother CAD (coronary artery disease) Hypertension Myocardial infarction Social History Smoking and tobacco status: never smoked Alcohol intake: never Marital status: Current occupational status: retired History of recent travel: No Vitals/I&O/Wt Last Vital Signs Temp 97.2 F L 05/27/20 15:46 Pulse 90 05/27/20 22:00 Resp 19 H 05/27/20 22:00 BP 105/84 05/27/20 22:00 Pulse Ox 93 05/27/20 22:00 Weight last 48 hrs Weight 108.862 kg Physical Exam Narrative: EXAM NARRATIVE: Pleasant and cooperative female who was lying in left lateral position, No active worsening of chest discomfort no orthopnea PND No cyanosis or gangrene Patient endorsed feeling lethargic and fatigued No neurological deficit awake alert oriented x3 GCS 15 Was requiring 3 to nasal cannula to keep saturation above 90% S1, S2 without murmur appreciated however distant heart sounds Her lungs have good bilateral breath sounds with mild rhonchi and crackles right greater than left Lower extremity no edema gangrene or ulcer Appropriate mood and affect Lethargic and fatigued No joint swelling or skin cellulitis changes Distended abdomen, central obesity nontender Data : 05/27/20 19:15 05/27/20 19:15 A&P Assessment and plan (1) Acute exacerbation of CHF (congestive heart failure): Status: Acute Qualifiers: Heart failure type: unspecified Qualified Code(s): I50.9 - Heart failure, unspecified (2) Weakness: Status: Acute (3) Suspected 2019 novel coronavirus infection: Status: Acute (4) Diabetes: Status: Acute (5) JIMBO (obstructive sleep apnea): Status: Acute (6) Acute respiratory failure with hypoxia: Status: Acute Additional A&P Information Acute hypoxia with acute CHF exacerbation Chest x-ray reveals pulmonary edema her BNP is not reliable because of higher BMI I would start her on low-dose Lasix as she is na?ve to diuretics Request echo in the morning No active chest pain no signs of ACS, EKG without ischemic or infarctive changes, negative delta troponin she has chronic chest pain and endorsing no acute worsening No signs of consolidation on x-ray, procalcitonin unremarkable she received 1 dose of Levaquin in the ER I would not continue antibiotics anymore DuoNeb every 4 as needed Generalized malaise Covid antigen negative, patient does endorse exposure to COVID-19 infected patients, she is denying fever, I will request PCR to rule out, hold off on Decadron for now Check TSH level Hold Trulicity which can also cause similar symptoms Type 2 diabetes Consistent carb/cardiac diet, moderate sliding scale Obstructive sleep apnea: Would use auto CPAP overnight Home O2 evaluation before discharge Full code Consistent carb/cardiac diet DVT prophylaxis Lovenox Attestations Medical Necessity Statement*: Anticipating discharge in less than 48 hours overnight monitoring because of acute hypoxia and CHF exacerbation Covid PCR sent which needs to be ruled out because of history of exposure Time Spent in Patient Care: (>than 50% of time spent in counselling and/or direct pt care on unit) . 40mins Coding Level of Care Code Acute Veterinarian Assistant for Chg Fwd Diagnoses Acute exacerbation of CHF (congestive heart failure) I50.9 Heart failure type: unspecified Weakness R53.1 Suspected 2019 novel coronavirus infection Z20.822 Diabetes E11.9 JIMBO (obstructive sleep apnea) G47.33 Acute respiratory failure with hypoxia J96.01
[2020-05-27] MEDS: potassium chloride ER 20 mEq Tablet 40 MEQ PO (22:26)
[2020-05-27] MEDS: FUROsemide 10 mg/mL SDV 2mL 20 MG IVP (22:26)
[2020-05-27 22:36] LABS: Procalcitonin 0.08 ng/mL (0-0.5)
--- NOTE | 2020-05-27 23:00 | PC.NURSE ---
tried to call report to CSU, CSU nurse to call back ER nurse for report
--- NOTE | 2020-05-27 23:35 | ECG_ITS ---
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 Measurements Intervals [place] Rate: 79 P: 52 MT: 180 QRS: 26 QRSD: 113 T: 50 QT: 371 QTc: 426 Interpretive Statements SINUS RHYTHM MODERATE INTRAVENTRICULAR CONDUCTION DELAY [110+ ms QRS DURATION] NONSPECIFIC T-WAVE ABNORMALITY Compared to ECG 05/27/2020 17:43:47 T-wave abnormality now present First degree AV block no longer present Electronically Signed On 05-28-2020 21:17:07 CDT by Kim Peters M.D. [id number]
--- NOTE | 2020-05-27 23:35 | PC.NURSE ---
patient up to bedside commode
[2020-05-28] VITALS (20 sets, daily range): BP systolic 104–117; BP diastolic 40–63; PULSE 58–87; RESP 13–25; TEMP 37.1–37.9; O2SAT 83–99
--- NOTE | 2020-05-28 00:16 | USCV_ITS ---
Taina Burdick Age: 70 Gender: F : 1950 Exam Date: 05/28/2020 06:26 Ordering Phys: Valeria Zaldivar MD Technologist: Esme Paredes [place] [facility] [place]: NEW CHF EXACERBATION BP: 112 / 51 HR: 58 Rhythm: Sinus Technical Quality: Technically difficult study MEASUREMENTS (Male / Female) Normal Values 2D ECHO LV Diastolic Diameter PLAX 4.4 cm 4.2 - 5.9 / 3.9 - 5.3 cm LV Systolic Diameter PLAX 2.7 cm IVS Diastolic Thickness 1.4 cm 0.6 - 1.0 / 0.6 - 0.9 cm IVS Systolic Thickness 1.2 cm LVPW Diastolic Thickness 0.9 cm 0.6 - 1.0 / 0.6 - 0.9 cm LVPW Systolic Thickness 1.4 cm RV Chamber Size 2.9 cm LVOT Diameter 2.0 cm LV Ejection Fraction 2D Teich 68.6 % LV Ejection Fraction MOD 2C 71.2 % LV Ejection Fraction 2C AL 71.3 % LA Diameter 3.5 cm LA Width 4.1 cm LA Height 4.7 cm RA Width 3.9 cm RA Height 3.9 cm Aorta at Sinotubular Diameter 2.8 cm M-MODE LV Diastolic Diameter MM 4.7 cm 4.2 - 5.9 / 3.9 - 5.3 cm LV Systolic Diameter MM 2.9 cm LV Ejection Fraction MM Teich 67.0 % IVS Diastolic Thickness MM 1.5 cm 0.6 - 1.0 / 0.6 - 0.9 cm IVS Systolic Thickness MM 1.6 cm LVPW Diastolic Thickness MM 1.4 cm 0.6 - 1.0 / 0.6 - 0.9 cm LVPW Systolic Thickness MM 1.8 cm Aortic Annulus Diameter 2.9 cm LA Ao Ratio MM 1.2 MV E Point Septal Separation 1.1 cm DOPPLER AV Peak Velocity 165.0 cm/s LVOT Peak Velocity 126.0 cm/s AV Area Cont Eq vti 2.1 cm squared AV Area Cont Eq pk 2.4 cm squared MV Area PHT 3.4 cm squared Mitral E to A Ratio 1.6 MV E' Velocity 58.5 cm/s Mitral E to MV E' Ratio 9.1 Mitral E to LV E' Lateral Ratio 8.9 Mitral E to LV E' Septal Ratio 9.4 TR Peak Velocity 191.0 cm/s TR Peak Gradient 14.6 mmHg Right Atrial Pressure 3.0 mmHg Pulmonary Artery Systolic Pressu 17.6 mmHg PV Peak Velocity 102.7 cm/s RV Acceleration Time 0.1 s RV Ejection Time 0.3 s RV AcT/ET 0.3 FINDINGS Left Ventricle Normal left ventricular cavity size. Normal left ventricular systolic function. No regional wall motion abnormalities. Left ventricular ejection fraction is estimated at 67 %. Grade I/IV diastolic dysfunction (abnormal relaxation filling pattern), normal to mildly elevated filling pressures. Right Ventricle The right ventricle is normal in size and function. Right Atrium The right atrium is normal in size. Left Atrium The left atrium is normal in size. Mitral Valve Structurally normal mitral valve without significant stenosis or prolapse. There is no mitral regurgitation. Aortic Valve Moderate aortic valve calcification. No aortic valve stenosis. No aortic valve regurgitation. Tricuspid Valve Structurally normal tricuspid valve without significant stenosis or regurgitation. Pulmonary artery systolic pressure is normal. Pulmonic Valve Structurally normal pulmonic valve without significant stenosis. There is no pulmonic regurgitation. Pericardium Normal pericardium without effusion. Aorta Normal ascending aorta dimension. CONCLUSIONS 1-Normal left ventricular cavity size. Normal left ventricular systolic function. No regional wall motion abnormalities. Left ventricular ejection fraction is estimated at 67 %. Grade I/IV diastolic dysfunction (abnormal relaxation filling pattern), normal to mildly elevated filling pressures. 2-There is no pericardial effusion. 3-No significant valve abnormalities. 4-Pulmonary artery systolic pressure is within normal limits. 5-Right atrial pressure is around 5 mm of mercury. 6-There are no prior echocardiogram studies to compare. Valeria Murray MD (Electronically Signed) Final Date: 28 May 2020 22:18 S
[2020-05-28 00:41] LABS: Magnesium 1.5 mg/dL (1.7-2.3)
[2020-05-28 00:47] LABS: Thyroid Stimulating Hormone 0.94 uIU/mL (0.27-4.20)
[2020-05-28] MEDS: enoxaparin 40 mg/0.4 mL Syringe SUBCUT ×2 (01:08→23:22)
[2020-05-28] MEDS: aspirin 81 mg EC Tablet PO ×2 (01:08→23:18)
[2020-05-28] MEDS: TRAMadol 50 mg Tablet PO ×3 (01:09→17:42)
[2020-05-28 01:51] LABS: Blood Urea Nitrogen 14 mg/dL (8-23); Calcium 7.9 mg/dL (8.5-10.5); Carbon Dioxide 20 mmol/L (22-29); Chloride 101 mmol/L (98-107); Glomerular Filtration Rate 82.7 mL/min (90-130); Glucose 103 mg/dL (65-115); Osmolality Calculated 279 mOsm/kg (285-295); Sodium 134 mmol/L (136-145)
[2020-05-28 01:52] LABS: Anion Gap 16.3 (5-19); Potassium 3.3 mmol/L (3.5-5.1); Troponin 5 6HR 23.52 ng/L (0-10); Troponin 5 6HR Delta 2.52 ng/L (0-12)
[2020-05-28 05:21] LABS: ABG PCO2 36.3 mmHg (35-45); ABG PH Result 7.39 (7.35-7.45); Arterial Blood Gas Hematocrit 39.6 % (37-47); Base Excess ABG -2.7 mmol/L (-2.0-2.0); Blood Gas Operator Identificat HARKR; Blood Gas Sample Site Brachial, right; Blood Gas Sample Type Arterial; HCO3 ABG 21.8 mmol/L (22-26); Oxygen Device NC
[2020-05-28 07:04] LABS: Glucose Point of Care 95 mg/dL (70-110)
[2020-05-28] MEDS: potassium chloride ER 20 mEq Tablet 40 MEQ PO (08:03)
[2020-05-28] MEDS: FUROsemide 10 mg/mL SDV 2mL 20 MG IVP (08:03)
--- NOTE | 2020-05-28 09:12 | PC.NUTR ---
NUTRITION WEIGHT ASSESSMENT: Ht. 61 inches. Wt.300 pounds. BMI of 56.7 kg/m2 indicates Morbid Obesity.
[2020-05-28 11:01] LABS: Glucose Point of Care 99 mg/dL (70-110)
[2020-05-28 14:01] LABS: Coronavirus Test Green County Detected
--- NOTE | 2020-05-28 14:31 | PM.PN ---
Subjective Subjective: Interval history: Patient stated she was still feeling very weak and mild respiratory distress. Was requiring oxygen via nasal cannula. Medications: Reviewed: Yes Vitals/I&O/Wt Last Vital Signs Temp 98.9 F 05/28/20 11:04 Pulse 60 05/28/20 11:04 Resp 19 H 05/28/20 11:04 BP 116/46 05/28/20 11:04 Pulse Ox 96 05/28/20 11:04 05/27/20 05/28/20 05/28/20 22:59 06:59 14:59 Intake Total 300 / 300 260 / 260 Output Total 300 / 300 Balance 300 / 300 -40 / -40 Weight last 48 hrs Weight 136.078 kg Weight 136.078 kg Weight 108.862 kg Physical Exam Narrative: EXAM NARRATIVE: General -alert awake and oriented, feeling very weak HEENT- grossly unremarkable CVS- regular rate rhythm Chest -clear to auscultation bilaterally Abdomen- soft nontender nondistended Extremities- no significant edema Data : 05/27/20 19:15 05/28/20 01:13 A&P Assessment and plan (1) Acute exacerbation of CHF (congestive heart failure): Status: Acute Qualifiers: Heart failure type: unspecified Qualified Code(s): I50.9 - Heart failure, unspecified (2) Weakness: Status: Acute (3) Suspected 2019 novel coronavirus infection: Status: Acute (4) Diabetes: Status: Acute (5) JIMBO (obstructive sleep apnea): Status: Acute (6) Acute respiratory failure with hypoxia: Status: Acute Additional A&P Information Acute hypoxia respiratory failure - Possibly due to new chf exacerbation vs developing pneumonia - Lasix as ordered - ECHO pending - Wean o2 as tolerated - [id number] pending - Droplet precautions - Normal pro-arpit - monitoring off abx - Chest-xray prn - CPAP Qhs Generalized malaise - Possibly infectious - PT consult - Follow up on covid pcr Type 2 diabetes - Consistent carb/cardiac diet, - Moderate sliding scale Obstructive sleep apnea: - Would use auto CPAP overnight - Home O2 evaluation before discharge Full code Consistent carb/cardiac diet DVT prophylaxis Lovenox Attestations Medical Necessity Statement*: Will require further hospitalizationFor management of respiratory distress and generalized weakness. Time Spent in Patient Care: Greater than 35 minutes (>than 50% of time spent in counselling and/or direct pt care on unit). Coding Level of Care Code Acute Speech Language Pathologist Assistant for Chg Fwd Diagnoses Acute exacerbation of CHF (congestive heart failure) I50.9 Heart failure type: unspecified Weakness R53.1 Suspected 2019 novel coronavirus infection Z20.822 Diabetes E11.9 JIMBO (obstructive sleep apnea) G47.33 Acute respiratory failure with hypoxia J96.01
[2020-05-28 16:56] LABS: Glucose Point of Care 101 mg/dL (70-110)
--- NOTE | 2020-05-28 17:20 | CTR_ITS ---
PROCEDURE INFORMATION: Exam: CTA Chest With Contrast Exam date and time: 05/28/2020 5:39 PM Age: 70 years old Clinical indication: Angina and shortness of breath; Patient HX: Best images possible. PT scanned twice; Additional info: Cp, covid19 positive R/O pe TECHNIQUE: Imaging protocol: Computed tomographic angiography of the chest with contrast. 3D rendering (Not supervised by radiologist): MIP and/or 3D reconstructed images were created by the technologist. Radiation optimization: All CT scans at this facility use at least one of these dose optimization techniques: automated exposure control; mA and/or kV adjustment per patient size (includes targeted exams where dose is matched to clinical indication); or iterative reconstruction. Contrast material: OMNI 350; Contrast volume: 77 ml; Contrast route: INTRAVENOUS (IV); COMPARISON: CR XR chest 1V portable [id number] 05/27/2020 4:36 PM RADIATION DOSE METRICS: Total DLP (mGy-cm): FINDINGS: Pulmonary arteries: No central pulmonary embolus. No enlargement of the pulmonary trunk. Aorta: No acute abnormality. Thyroid: A cystic appearing 1.2 cm left thyroid nodule. A few thyroid calcifications. Lungs: A small amount of patchy ground-glass opacity associated septal thickening. Minimal atelectasis. Pleural spaces: Unremarkable. No pneumothorax. No pleural effusion. Heart: No cardiomegaly. No pericardial effusion. Lymph nodes: No enlarged lymph nodes. Bones/joints: Moderate degenerative changes spine. Soft tissues: Within normal limits. CT/CT angio chest PE protcl [id number] IMPRESSION: 1. No central pulmonary embolus. The segmental and more distal pulmonary arteries are not well evaluated. No evidence of right heart strain. 2. Lung findings consistent with given history of COVID pneumonia. 3. A small left thyroid nodule has no concerning findings and does not require dedicated imaging follow-up. COMMENTS: Consistent with the [employer]'s Incidental Findings Committee white paper (J Am Syeda Radiol 2015): In patients aged 35 years and older with an incidental thyroid nodule equal to or greater than 1.[address], MRI or extrathyroidal US, further evaluation with dedicated thyroid US is recommended for patients with normal life expectancy and without comorbidities. For smaller nodules without suspicious features, no further evaluation or follow up is recommended. Radiation Dose CTDIVOL = (mGy): DLP = 2002.66 (mGjovany-cm)
--- NOTE | 2020-05-28 18:06 | PC.NURSE ---
pt's test for covid came back positive.dr العراقي notified.ct of chest ordered,levaquin,dexamethasone iv.
[2020-05-28] MEDS: iohexol 350 mg/mL 100 mL Btl IV ×2 (18:24)
[2020-05-28] MEDS: dexamethasone 4 mg/mL INJ 6 MG IVP (18:32)
[2020-05-28] MEDS: levofloxacin-dextrose 5 % 750 MG/150 ML PREMIX 100 MG IV (18:33)
[2020-05-28 20:44] LABS: Glucose Point of Care 140 mg/dL (70-110)
[2020-05-28] MEDS: atorvastatin 40 mg Tablet 20 MG PO (23:19)
[2020-05-29] VITALS (15 sets, daily range): BP systolic 108–135; BP diastolic 49–82; PULSE 59–86; RESP 14–22; TEMP 36.4–36.9; O2SAT 91–94
[2020-05-29 05:37] LABS: Hematocrit 39.7 % (37.0-47.0); Hemoglobin 12.9 g/dL (11.5-15.3); Lymphocytes # 0.5 10^3/uL (0.8-4.8); Lymphocytes % 14.4 %; Mean Corpuscular HGB Conc 32.5 g/dL (30.0-36.0); Mean Corpuscular Hemoglobin 28.5 pg (28.0-34.0); Mean Corpuscular Volume 87.8 fL (81-99); Mean Platelet Volume 9.3 fL (7.4-10.4); Monocytes # 0.2 10^3/uL (0.2-0.9); Monocytes % 5.8 %; Neutrophils # 2.86 10^3/uL (1.8-7.7); Neutrophils % 79.5 %; Nucleated Red Blood Cells % 0 %; Platelet Count 231 10^3/cmm (130-400); Red Blood Count 4.52 10^6/uL (4.1-5.3); Red Cell Distribution Width 13.2 % (12.1-15.1); White Blood Count 3.6 10^3/uL (4.0-10.0)
[2020-05-29 05:47] LABS: D Dimer 0.63 ug/mIFEU (0-0.59)
[2020-05-29 05:56] LABS: Alanine Aminotransferase 21 U/L (0-33); Albumin Level 3.2 g/dL (3.5-5.2); Alkaline Phosphatase 65 IU/L (35-105); Aspartate Amino Transferase 21 U/L (0-32); Blood Urea Nitrogen 16 mg/dL (8-23); Calcium 8.5 mg/dL (8.5-10.5); Carbon Dioxide 20 mmol/L (22-29); Chloride 103 mmol/L (98-107); Creatinine Clr Calc Pharmacy 86.6208; Globulin 3.1 g/dL (1.3-4.6); Glomerular Filtration Rate 98.8 mL/min (90-130); Glucose 183 mg/dL (65-115); Osmolality Calculated 280 mOsm/kg (285-295); Sodium 132 mmol/L (136-145); Total Bilirubin 0.3 mg/dL (0.15-1.2); Total Protein 6.3 g/dL (6.6-8.7)
[2020-05-29 06:02] LABS: C Reactive Protein 50.3 mg/L (0.0-4.9); Magnesium 1.6 mg/dL (1.7-2.3); Procalcitonin 0.07 ng/mL (0-0.5)
[2020-05-29 06:13] LABS: Ferritin 192 ng/mL (15-150)
[2020-05-29 07:19] LABS: Glucose Point of Care 156 mg/dL (70-110)
[2020-05-29] MEDS: FUROsemide 10 mg/mL SDV 2mL 20 MG IVP (08:11)
[2020-05-29] MEDS: potassium chloride ER 20 mEq Tablet 40 MEQ PO (08:11)
[2020-05-29] MEDS: magnesium sulfate premix 2 GM/50 ML PIGGYBACK IV (09:42)
[2020-05-29 11:40] LABS: Glucose Point of Care 143 mg/dL (70-110)
--- NOTE | 2020-05-29 11:41 | P.PN_ITS ---
Subjective Subjective: Interval history: Patient was found to be covid-19 positive, overnight has been feeling weak, respiratory status remained stable. Requiring 3-4 L of o2 via NC. Medications: Reviewed: Yes Vitals/I&O/Wt Last Vital Signs Temp 98.3 F 05/29/20 10:54 Pulse 70 05/29/20 10:54 Resp 14 05/29/20 07:54 BP 126/73 05/29/20 10:54 Pulse Ox 91 05/29/20 10:54 05/28/20 05/29/20 05/29/20 22:59 06:59 14:59 Intake Total 150 / 410 290 / 290 Output Total 1100 / 1400 400 / 1800 900 / 900 Balance -950 / -990 -400 / -1390 -610 / -610 Weight last 48 hrs Weight 137.937 kg Weight 136.078 kg Weight 136.078 kg Weight 108.862 kg Physical Exam Narrative: EXAM NARRATIVE: General -alert awake and oriented, feeling very weak on 3L HEENT- grossly unremarkable CVS- regular rate rhythm Chest -clear to auscultation bilaterally Abdomen- soft nontender nondistended Extremities- no significant edema Data : 05/29/20 05:19 05/29/20 05:19 A&P Assessment and plan (1) Acute exacerbation of CHF (congestive heart failure): Status: Acute Qualifiers: Heart failure type: unspecified Qualified Code(s): I50.9 - Heart failure, unspecified (2) Weakness: Status: Acute (3) Suspected 2019 novel coronavirus infection: Status: Acute (4) Diabetes: Status: Acute (5) JIMBO (obstructive sleep apnea): Status: Acute (6) Acute respiratory failure with hypoxia: Status: Acute Additional A&P Information Acute hypoxia respiratory failure due to COVID-19 pneumonia - Started on Decadon 6 mg IV daily - Discussed remdesivir with patient - will hold for now - CTA Chest PE protocol - Negative for PE, bilateral infiltrates - Will trend covid-19 labs - Tylenol prn for fever - Wean o2 as tolerated - Home o2 eval at discharge - Pro-arpit negative - Empirically on Levaquin 750 daily Type 2 diabetes - Consistent carb/cardiac diet, - Moderate sliding scale - May have to increase due to decadron Obstructive sleep apnea: - Would use auto CPAP overnight DVT ppx - SCDS - Lovenox Full code Attestations Medical Necessity Statement*: Will require further hospitalization for managemnet of COVID 19 pneumonia req Iv steroids, oxygen and iv abx. Time Spent in Patient Care: Greater than 35 minutes (>than 50% of time spent in counselling and/or direct pt care on unit) . Coding Level of Care Code Acute Corporate Fitness Program Coordinator for Madhug Fwd Diagnoses Acute exacerbation of CHF (congestive heart failure) I50.9 Heart failure type: unspecified Weakness R53.1 Suspected 2019 novel coronavirus infection Z20.822 Diabetes E11.9 JIMBO (obstructive sleep apnea) G47.33 Acute respiratory failure with hypoxia J96.01
[2020-05-29] MEDS: TRAMadol 50 mg Tablet PO ×2 (15:28→22:26)
[2020-05-29] MEDS: ipratropium-albuterol 3 mL Neb INHALATION ×2 (15:38→23:12)
[2020-05-29 16:12] LABS: Glucose Point of Care 128 mg/dL (70-110)
[2020-05-29] MEDS: docusate sodium 100 mg Capsule PO (17:29)
[2020-05-29] MEDS: polyethylene glycol 3350 Pkt 17 gm PO (17:29)
[2020-05-29] MEDS: dexamethasone 4 mg/mL INJ 6 MG IVP (17:29)
[2020-05-29] MEDS: levofloxacin-dextrose 5 % 750 MG/150 ML PREMIX 100 MG IV (17:30)
[2020-05-29 20:12] LABS: Glucose Point of Care 187 mg/dL (70-110)
[2020-05-29] MEDS: atorvastatin 40 mg Tablet 20 MG PO (22:00)
[2020-05-29] MEDS: aspirin 81 mg EC Tablet PO (22:26)
[2020-05-29] MEDS: enoxaparin 40 mg/0.4 mL Syringe SUBCUT (22:27)
[2020-05-30] VITALS (10 sets, daily range): BP systolic 120–142; BP diastolic 47–75; PULSE 50–80; RESP 16–20; TEMP 36.7–36.9; O2SAT 91–96
[2020-05-30 05:44] LABS: Basophils % 0.1 %; Hematocrit 38.3 % (37.0-47.0); Hemoglobin 12.5 g/dL (11.5-15.3); Lymphocytes # 0.6 10^3/uL (0.8-4.8); Lymphocytes % 8.2 %; Mean Corpuscular HGB Conc 32.6 g/dL (30.0-36.0); Mean Corpuscular Hemoglobin 28.7 pg (28.0-34.0); Mean Corpuscular Volume 87.8 fL (81-99); Mean Platelet Volume 9.6 fL (7.4-10.4); Monocytes # 0.5 10^3/uL (0.2-0.9); Monocytes % 6.9 %; Neutrophils # 5.76 10^3/uL (1.8-7.7); Neutrophils % 84.4 %; Nucleated Red Blood Cells % 0 %; Platelet Count 243 10^3/cmm (130-400); Red Blood Count 4.36 10^6/uL (4.1-5.3); White Blood Count 6.8 10^3/uL (4.0-10.0)
[2020-05-30 07:25] LABS: Glucose Point of Care 171 mg/dL (70-110)
[2020-05-30 08:16] LABS: Alanine Aminotransferase 22 U/L (0-33); Albumin Level 3.2 g/dL (3.5-5.2); Alkaline Phosphatase 66 IU/L (35-105); Anion Gap 17.9 (5-19); Aspartate Amino Transferase 21 U/L (0-32); Blood Urea Nitrogen 21 mg/dL (8-23); Calcium 8.4 mg/dL (8.5-10.5); Carbon Dioxide 20 mmol/L (22-29); Chloride 103 mmol/L (98-107); Globulin 3.2 g/dL (1.3-4.6); Glomerular Filtration Rate 82.7 mL/min (90-130); Glucose 193 mg/dL (65-115); Osmolality Calculated 290 mOsm/kg (285-295); Potassium 4.9 mmol/L (3.5-5.1); Sodium 136 mmol/L (136-145); Total Bilirubin 0.4 mg/dL (0.15-1.2); Total Protein 6.4 g/dL (6.6-8.7)
[2020-05-30] MEDS: docusate sodium 100 mg Capsule PO ×2 (09:00→18:54)
[2020-05-30 11:27] LABS: Glucose Point of Care 155 mg/dL (70-110)
[2020-05-30] MEDS: TRAMadol 50 mg Tablet PO (12:19)
--- NOTE | 2020-05-30 13:28 | PM.PN ---
Subjective Subjective: Interval history: Patient was feeling better today. No fever overnight. Respiratory status remained stable on 3L of o2 via NC. Activity level increased. Medications: Reviewed: Yes Vitals/I&O/Wt Last Vital Signs Temp 98.0 F 05/30/20 12:00 Pulse 58 L 05/30/20 12:00 Resp 17 05/30/20 12:00 BP 120/54 05/30/20 12:00 Pulse Ox 93 05/30/20 12:00 05/29/20 05/30/20 05/30/20 22:59 06:59 14:59 Intake Total 640 / 1170 480 / 480 Output Total 400 / 1550 Balance 640 / 20 -400 / -380 480 / 480 Weight last 48 hrs Weight 137.166 kg Weight 137.937 kg Physical Exam Narrative: EXAM NARRATIVE: General -alert awake and oriented, feeling better on on 3L HEENT- grossly unremarkable CVS- regular rate rhythm Chest -clear to auscultation bilaterally Abdomen- soft nontender nondistended Extremities- no significant edema Data : 05/30/20 04:30 05/30/20 04:30 A&P Assessment and plan (1) Acute exacerbation of CHF (congestive heart failure): Status: Acute Qualifiers: Heart failure type: unspecified Qualified Code(s): I50.9 - Heart failure, unspecified (2) Weakness: Status: Acute (3) Suspected 2019 novel coronavirus infection: Status: Acute (4) Diabetes: Status: Acute (5) JIMBO (obstructive sleep apnea): Status: Acute (6) Acute respiratory failure with hypoxia: Status: Acute Additional A&P Information Acute hypoxia respiratory failure due to COVID-19 pneumonia - Decadon 6 mg IV daily plan for total 10 days - Discussed remdesivir with patient - will hold for now - CTA Chest PE protocol - Negative for PE, bilateral infiltrates - Will trend covid-19 labs - recheck in AM - Tylenol prn for fever - Wean o2 as tolerated - Home o2 eval at discharge. - Pro-arpit negative - Empirically on Levaquin 750 daily - plan for total 5 days - Anticipate d/c home on o2 tomorrow am Type 2 diabetes - Consistent carb/cardiac diet, - Moderate sliding scale - May have to increase due to decadron Obstructive sleep apnea: - Continue CPAP Qhs DVT ppx - SCDS - Lovenox Full code Attestations Medical Necessity Statement*: will require additional day in hospital to wean o2, continue iv steroids, and abx Time Spent in Patient Care: Greater than 35 minutes (>than 50% of time spent in counselling and/or direct pt care on unit). Coding Level of Care Code Acute Tariff Compiling Clerk for Madhug Fwd Diagnoses Acute exacerbation of CHF (congestive heart failure) I50.9 Heart failure type: unspecified Weakness R53.1 Suspected 2019 novel coronavirus infection Z20.822 Diabetes E11.9 JIMBO (obstructive sleep apnea) G47.33 Acute respiratory failure with hypoxia J96.01
[2020-05-30 16:50] LABS: Glucose Point of Care 140 mg/dL (70-110)
[2020-05-30] MEDS: dexamethasone 4 mg/mL INJ 6 MG IVP (18:52)
[2020-05-30] MEDS: levofloxacin-dextrose 5 % 750 MG/150 ML PREMIX 100 MG IV (18:53)
--- NOTE | 2020-05-30 19:30 | PC.NURSE ---
Bedside report received from Gasper RN. Pt resting in bed watching her Ipad. Patient has no complaints or needs at this time. Nurse will continue to monitor.
[2020-05-30 20:16] LABS: Glucose Point of Care 187 mg/dL (70-110)
[2020-05-30] MEDS: atorvastatin 40 mg Tablet 20 MG PO (22:00)
[2020-05-30] MEDS: aspirin 81 mg EC Tablet PO (22:00)
[2020-05-30] MEDS: enoxaparin 40 mg/0.4 mL Syringe SUBCUT (22:00)
[2020-05-30] MEDS: lisinopril 20 mg Tablet PO (22:00)
[2020-05-31] VITALS (11 sets, daily range): BP systolic 118–143; BP diastolic 51–84; PULSE 46–74; RESP 15–18; TEMP 36.7–36.9; O2SAT 87–97
[2020-05-31 05:13] LABS: Basophils % 0.2 %; Eosinophils % 0.2 %; Hematocrit 39.8 % (37.0-47.0); Hemoglobin 12.9 g/dL (11.5-15.3); Lymphocytes # 0.6 10^3/uL (0.8-4.8); Lymphocytes % 12.6 %; Mean Corpuscular HGB Conc 32.4 g/dL (30.0-36.0); Mean Corpuscular Hemoglobin 28.5 pg (28.0-34.0); Mean Corpuscular Volume 88.1 fL (81-99); Mean Platelet Volume 10.3 fL (7.4-10.4); Monocytes # 0.4 10^3/uL (0.2-0.9); Monocytes % 7.8 %; Neutrophils # 3.71 10^3/uL (1.8-7.7); Neutrophils % 78.1 %; Nucleated Red Blood Cells % 0 %; Platelet Count 249 10^3/cmm (130-400); Red Blood Count 4.52 10^6/uL (4.1-5.3); Red Cell Distribution Width 13.1 % (12.1-15.1); White Blood Count 4.8 10^3/uL (4.0-10.0)
[2020-05-31] MEDS: ipratropium-albuterol 3 mL Neb INHALATION (05:46)
[2020-05-31 05:52] LABS: Procalcitonin 0.04 ng/mL (0-0.5)
[2020-05-31 05:55] LABS: Slide Review Slide Review Perform
[2020-05-31 06:03] LABS: Alanine Aminotransferase 22 U/L (0-33); Albumin Level 3.2 g/dL (3.5-5.2); Alkaline Phosphatase 64 IU/L (35-105); Anion Gap 16.6 (5-19); Aspartate Amino Transferase 14 U/L (0-32); Blood Urea Nitrogen 20 mg/dL (8-23); Calcium 8.3 mg/dL (8.5-10.5); Carbon Dioxide 21 mmol/L (22-29); Chloride 103 mmol/L (98-107); Globulin 3.4 g/dL (1.3-4.6); Glucose 180 mg/dL (65-115); Osmolality Calculated 289 mOsm/kg (285-295); Potassium 4.6 mmol/L (3.5-5.1); Sodium 136 mmol/L (136-145); Total Bilirubin 0.3 mg/dL (0.15-1.2); Total Protein 6.6 g/dL (6.6-8.7)
[2020-05-31 06:53] LABS: Glucose Point of Care 178 mg/dL (70-110)
--- NOTE | 2020-05-31 08:02 | DCPLANNER ---
Pg 2 of IM updated and reviewed with pt. via the phone as she is Covid positive. No questions, copy sent in with the Nurse as agreed.
[2020-05-31] MEDS: docusate sodium 100 mg Capsule PO ×2 (08:26→17:57)
[2020-05-31] MEDS: potassium chloride ER 20 mEq Tablet 40 MEQ PO (08:26)
[2020-05-31 11:33] LABS: Glucose Point of Care 184 mg/dL (70-110)
--- NOTE | 2020-05-31 15:33 | P.DS_ITS ---
Discharge Providers Date of Admission: 05/28/20 15:06 Date of Discharge: May 31, 2020 Attending Provider at Admission: Valeria Zaldivar MD Attending Provider at Discharge: Elizabeth Espino Primary Care Provider: Emely Clark DO Diagnoses at Discharge Discharge Diagnosis (1) Acute exacerbation of CHF (congestive heart failure): Status: Acute Qualifiers: Heart failure type: unspecified Qualified Code(s): I50.9 - Heart failure, unspecified (2) Weakness: Status: Acute (3) Suspected 2019 novel coronavirus infection: Status: Acute (4) Diabetes: Status: Acute (5) JIMBO (obstructive sleep apnea): Status: Acute (6) Acute respiratory failure with hypoxia: Status: Acute Reason for Visit Reason for Visit: had covid like symptoms for 2 weeks Hospital Course Hospital Course 70-year-old female with a past medical history significant for diabetes mellitus, hypertension, dyslipidemia who presented to the hospital with respiratory distress. Initially on arrival she was thought to have heart failure exacerbation and started on IV Lasix. During this time however COVID-19 was also sent and returned positive. Of was found have a slightly elevated D- dimer. CT angio performed showed findings consistent with COVID-19 pneumonia. Patient was requiring 3 to 4 L of O2 via nasal cannula. She was started on Decadron 6 mg daily on a 10 day course. In addition she was also treated with a 5 day course of Levaquin 750 daily. Patient noted gradual improvement and felt comfortable with going home on oxygen which was arranged at time of discharge. she was advised to follow up with primary care physician as well as Pulmonary after discharge. advised her to return to hospital if any episode of worsening respiratory distress, hypoxia or fevers. Patient verbalized understanding. of note patient was taken off Lasix. Heart failure exacerbation was ruled out. Echocardiogram showed stable findings of pEF. Physical Exam Narrative: EXAM NARRATIVE: General -alert awake and oriented, feeling better on on 3L HEENT- grossly unremarkable CVS- regular rate rhythm Chest -clear to auscultation bilaterally Abdomen- soft nontender nondistended Extremities- no significant edema Discharge Data Data Completed and Pending: Completed Studies During Hospitalization Category Date Time Status CT angio chest PE protcl [id number] Stat Cat Scan 05/28/20 17:[address] head wo con* 7 [id number] Urgent Cat Scan 05/27/20 16:09 Completed XR chest 1V rich ble [id number] Urgent Exams 05/27/20 16:09 Completed CV echo complete* [id number] Routine Ultrasound 05/28/20 00:16 Completed Labs from last 24 hours 05/31/20 05/31/20 05/31/20 11:29 06:24 04:30 WBC RBC Hgb Hct MCV MCH MCHC RDW Plt Count MPV Neut % (Auto) Lymph % (Auto) Kingfisher % (Auto) Eos % (Auto) Baso % (Auto) Neut # (Auto) Lymph # (Auto) [place] # (Auto) Eos # (Auto) Baso # (Auto) Nucleated RBC % (a uto) Nucleated RBCs # Sodium 136 Potassium 4.6 Chloride 103 Carbon Dioxide 21 L Anion Gap 16.6 BUN 20 Creatinine 0.5 GFR Calculation 122.0 Glucose 180 H POC Glucose 184 H 178 H Calculated Osmolal ity 289 Calcium 8.3 L Total Bilirubin 0.3 AST 14 ALT 22 Alkaline Phosphata se 64 Total Protein 6.6 Albumin 3.2 L Globulin 3.4 Procalcitonin 0.04 05/31/20 05/30/20 05/30/20 04:30 20:09 16:46 WBC 4.8 RBC 4.52 Hgb 12.9 Hct 39.8 MCV 88.1 MCH 28.5 MCHC 32.4 RDW 13.1 Plt Count 249 MPV 10.3 Neut % (Auto) 78.1 Lymph % (Auto) 12.6 King[place]isher % (Auto) 7.8 Eos % (Auto) 0.2 Baso % (Auto) 0.2 Neut # (Auto) 3.71 Lymph # (Auto) 0.6 L [place] # (Auto) 0.4 Eos # (Auto) 0.0 Baso # (Auto) 0.0 Nucleated RBC % (a uto) 0 Nucleated RBCs # 0.0 Sodium Potassium Chloride Carbon Dioxide Anion Gap BUN Creatinine GFR Calculation Glucose POC Glucose 187 H 140 H Calculated Osmolal ity Calcium Total Bilirubin AST ALT Alkaline Phosphata se Total Protein Albumin Globulin Procalcitonin Vitals: Last Vital Signs Temp 98.0 F 05/31/20 12:00 Pulse 56 L 05/31/20 14:00 Resp 16 05/31/20 12:00 BP 118/66 05/31/20 12:00 Pulse Ox 90 05/31/20 13:53 Discharge Plan Discharge Patient Disposition: Home Condition: Stable Prescriptions: New Decadron 6 mg tablet 6 mg PO DAILY Qty: 7 RF: 0 Continued lisinopril 20 mg tablet 20 mg PO DAILY@2299 RF: 0 albuterol sulfate 90 mcg/actuation aerosol powdr breath activated 2 inh INHALATION Q4H PRN (Reason: Shortness Of Breath) RF: 0 atorvastatin 10 mg tablet 10 mg PO DAILY@2299 RF: 0 tramadol 50 mg tablet 50 mg PO BID PRN (Reason: unknown) RF: 0 aspirin 81 mg Tablet,Delayed Release (Dr/Ec) 81 mg PO DAILY@2299 RF: 0 Trulicity 1.5 mg/0.5 mL pen injector 1.5 mg SUBCUT DAILY@2299 RF: 0 oxybutynin chloride 10 mg Tablet Extended Release 24hr 10 mg PO DAILY RF: 0 melatonin 10 mg Tablet 10 mg PO BEDTIME PRN (Reason: Insomnia) RF: 0 Discontinued ibuprofen [IBU] 800 mg tablet 800 mg PO Q8H PRN (Reason: Pain) RF: 0 Discharge Orders: Discharge Order (Routine); Ordered 05/31/20 Ordered By: Elizabeth Espino Other Ambulatory Orders: DME: Oxygen (Order) Location: None Selected Ordered By: Elizabeth Espino DME: Oxygen (Order) Location: None Selected Ordered By: Elizabeth Espino Referrals: [facility] [Outside] Shanta Dwyer MD [Physician] - 1 week ([facility] will be calling to schedule a pulmonology followup with Dr. Dwyer the be seen in 1 week. If you don't hear from them by Monday, please give them a call. Thank you) Emely Clark DO [Primary Care Provider] - 4-7 days ([facility] will be calling to schedule a hospital followup to be seen in 4 to 7 days. If you don't hear from them by Monday, please give them a call. Thank you ) Discharge Diet: Cardiac and Diabetic Discharge Activity: Increase activity as tolerated Patient Instructions: Corticosteroids (By mouth), Viral Pneumonia (DC), Using Oxygen at Home (DC) Activity Restrictions/Additional Instructions: Continue precautions as discussed, return to hospital if increasing respiratory distress, recurrance of fever, or any new symptoms. Discharge Attestations Time Spent in Discharge Care*: greater than 30 min Specific Discharge Activities: educating patient, discussing with caseworker protective services/social workers/dc planners, documenting/other paperwork and evaluating patient/reviewing data Status at Discharge: Cognitive status at discharge: cognitively intact , Behavioral status at discharge: cooperative , Functional status at discharge: independent ambulation Overall status at discharge: patient is progressing back to baseline Quality Metrics Clinical Quality Measures During this hospital stay, did patient experience: None Coding Level of Care Code Acute Chg FW DC note Diagnoses Acute exacerbation of CHF (congestive heart failure) I50.9 Heart failure type: unspecified Weakness R53.1 Suspected 2019 novel coronavirus infection Z20.822 Diabetes E11.9 JIMBO (obstructive sleep apnea) G47.33 Acute respiratory failure with hypoxia J96.01
--- NOTE | 2020-05-31 16:34 | PC.NURSE ---
Discharge instructions given per the physician's orders. Patient verbalized understanding of teaching and did not have any further questions. IV has been removed. O2 has been delivered. Patient cleared for dc by Dr. Espino. No further needs identified at this time. Patient has contacted transportation for dc. Nurse to continue to monitor.
[2020-05-31 16:37] LABS: Glucose Point of Care 126 mg/dL (70-110)
--- NOTE | 2020-05-31 17:12 | PC.NURSE ---
Dr. Espino notified that patient's IV has been removed, nurse unable to give evening dose of decadron. Telephone order to administer Decadron 6 mg PO now. RBTO.
[2020-05-31] MEDS: dexamethasone 4 mg Tablet 6 MG PO (17:57)
== END 2020-05-31 19:15 | disposition home or self-care (01) | DRG 177 ==
LOC: ER 22:19 → CSU 22:50
PROVIDERS: Physician Assistant; Student in an Organized Health Care Education/Training Program; Admitting Provider Internal Medicine; Emergency Provider Nurse Practitioner Family; PCP Family Medicine; Visit Provider Hospitalist
DX: U07.1 COVID-19 (principal); J12.82 Pneumonia due to coronavirus disease 2019; J96.01 Acute respiratory failure with hypoxia; Z68.43 Body mass index [BMI] 50.0-59.9, adult; E66.01 Morbid (severe) obesity due to excess calories; G47.33 Obstructive sleep apnea (adult) (pediatric); E11.9 Type 2 diabetes mellitus without complications; I10 Essential (primary) hypertension; G89.29 Other chronic pain; E78.5 Hyperlipidemia, unspecified; N39.46 Mixed incontinence; Z79.82 Long term (current) use of aspirin; Z79.4 Long term (current) use of insulin
CPT/HCPCS: 36415; 36416; 36600; 70450; 71045; 71275; 80048; 80051; 80053; 80306; 81001; 82009; 82330; 82728; 82803; 82805; 82962; 83605; 83690; 83735; 83880; 84145; 84443; 84484; 85025; 85378; 86140; 87426; 87635; 93005; 93306; 94640; 96365; 96372; 96375; 97110; 97161; 99285; G0378; J1100; J1650; J1815; J1940; J1956; J3475; J8540; Q9967

== ENCOUNTER → 2021-05-31 14:23 | Outpatient (BNVA) | payer MEDICARE, SELFPAY | PROVIDERS: PCP Family Medicine; Visit Provider Internal Medicine | DX: F41.9 Anxiety disorder, unspecified (principal); Z79.82 Long term (current) use of aspirin; Z68.43 Body mass index [BMI] 50.0-59.9, adult; E11.9 Type 2 diabetes mellitus without complications; E66.9 Obesity, unspecified; I10 Essential (primary) hypertension; E78.5 Hyperlipidemia, unspecified; G47.33 Obstructive sleep apnea (adult) (pediatric) | CPT/HCPCS: 99214 ==

== ENCOUNTER → 2021-12-21 13:01 | Outpatient (BNVA) | payer MEDICARE, SELFPAY | PROVIDERS: PCP Family Medicine; Visit Provider Internal Medicine Cardiovascular Disease | DX: I10 Essential (primary) hypertension (principal); J12.82 Pneumonia due to coronavirus disease 2019; E78.5 Hyperlipidemia, unspecified; E66.9 Obesity, unspecified; Z68.43 Body mass index [BMI] 50.0-59.9, adult; G47.33 Obstructive sleep apnea (adult) (pediatric) | CPT/HCPCS: 99213 ==

== ENCOUNTER 2021-12-30 14:00 | Outpatient (CLI) | payer MEDICARE, SELFPAY ==
--- NOTE | 2021-12-30 14:08 | MM_ITS ---
WS: [id number] BILATERAL 2D DIGITAL SCREENING MAMMOGRAPHY WITH CAD CLINICAL INFORMATION: SCREENING HISTORY: Screening mammogram. No current complaints. COMPARISON: January 22, 2026 TECHNIQUE: Bilateral CC and MLO views. FINDINGS: Scattered fibroglandular densities bilaterally. No suspicious focal mass, asymmetry, calcifications, or architectural distortion. No evidence of malignancy. A few incidental punctate calcifications LEFT breast. MM/[place] [id number] IMPRESSION: BI-RADS: 2-Benign FOLLOW UP: 1 Year Follow-up Recommend return to annual screening mammography.
== END 2021-12-30 14:01 | disposition home or self-care (01) ==
LOC: RAD 14:02
PROVIDERS: PCP Family Medicine; Visit Provider Nurse Practitioner Family
DX: Z12.31 Encounter for screening mammogram for malignant neoplasm of breast (principal)
CPT/HCPCS: 77063; 77067